=== PATIENT | male | born 1950 | race Two or more races ===

== ENCOUNTER 2021-02-18 06:31 | Day surgery (SDC) | payer OTHER ==
[~2021-02-18 06:31] MED LIST: COZAAR25 MG PO; METFORMIN HCL500 M2 PO; NORVASC2.5 M1 PO; SYNTHROID50 MCG PO
[2021-02-18] MEDS ORDERED: POLY119PG PO (14:27)
[2021-02-18] MEDS ORDERED: NEURONTIN600 M1 PO (14:27)
[2021-02-18] MEDS ORDERED: PERCOCET 5-3251 EACH PO (14:27)
== END 2021-02-18 16:50 | disposition home or self-care (01) ==
LOC: CIR.AMB 06:31
PROVIDERS: ATTEND Surgery
DX: K40.91 Unilateral inguinal hernia, without obstruction or gangrene, recurrent (principal); K40.90 Unilateral inguinal hernia, without obstruction or gangrene, not specified as recurrent; Z20.822 Contact with and (suspected) exposure to COVID-19